=== PATIENT | male | born 1985 | race Caucasian/White ===

== ENCOUNTER 2021-03-29 10:18 | Emergency (ER) | payer BC ==
[2021-03-29 11:27] VITALS: BP 141/87; PULSE 74; RESP 16; TEMP 98
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
--- NOTE | 2021-03-29 14:35 | XR ---
Left hand HISTORY: Trauma and pain 3 views left hand Bone mineralization, joint spaces and alignment are maintained. IMPRESSION: No fracture or dislocation is evident.
== END 2021-03-29 12:14 | disposition home or self-care (01) ==
LOC: EC 10:18
DX: S66.912A Strain of unspecified muscle, fascia and tendon at wrist and hand level, left hand, initial encounter (principal); Y93.55 Activity, bike riding
CPT/HCPCS: 99283